=== PATIENT | female | born 1975 | race Two or more races ===

== ENCOUNTER 2025-04-21 19:38 | Emergency (ER) | payer OTHER ==
[~2025-04-21] VITALS: Ht 160 cm; Wt 68.0 kg
[2025-04-21] MEDS ORDERED: TOPROL XL25 M1 PO (19:58)
[2025-04-21] MEDS ORDERED: ROSUVASTATIN CA20 MG PO (19:58)
[2025-04-21 23:59] LABS: BASO % 0.5 % (0.1-1.2); EOS # 0.32 (0.04-0.54); EOS % 5.3 % (0.7-7.0); LYMPH # 2.07 (1.18-3.74); LYMPH % 34.0 % (19.3-53.1); MEAN PLATELET VOLUME 11.80 fl (9.4-12.4); MONO # 0.58 (0.24-0.82); MONO % 9.5 % (4.7-12.5); NEUT # 3.07 (1.56-6.13); NEUT % 50.4 % (34.0-71.1); RED CELL DISTRIBUTION WIDTH 13.2 % (11.6-14.4)
[2025-04-22 00:11] LABS: ALT/SGPT 18.0 U/L (12-78); AST/SGOT 16.0 U/L (15-37); BILIRUBIN TOTAL 0.21 mg/dL (0.3-1.2); BUN CREA RATIO 16.0 (7.0-25.0); CREATININE SERUM 0.56 mg/dL (0.55-1.02); GFR 114.13; GLOBULINA 3.7 G/DL (2.4-3.5); GLUCOSE FASTING 102.0 mg/dL (65-100); OSMOLALITY SERUM 284.0 MOSM/KG (275-295)
[2025-04-22] MEDS ORDERED: KETO10TA2 PO (03:19)
== END 2025-04-22 03:27 ==
LOC: ER 19:52
PROVIDERS: Emergency Medicine
DX: N92.3 Ovulation bleeding (principal); I49.8 Other specified cardiac arrhythmias